=== PATIENT | female | born 1985 | race American Indian/Alaskan Native ===

== ENCOUNTER 2018-05-07 11:24 | Outpatient (CLI) | payer MEDICAID ==
[2018-05-07 11:51] VITALS: BP 113/58
[2018-05-07 12:13] LABS: Bacteria,Urine 2+ /HPF (Negative); Bilirubin,Urine NEG (Negative); Blood,Urine NEG (Negative); Color,Urine Yellow (Yellow); Mucus,Urine FEW /HPF; Protein,Urine <15 mg/dL mg/dL (Negative)
== END 2018-05-07 12:40 | disposition home or self-care (01) ==
LOC: TRG 11:24
PROVIDERS: ATTEND Obstetrics & Gynecology
DX: O47.02 False labor before 37 completed weeks of gestation, second trimester (principal); Z3A.23 23 weeks gestation of pregnancy; Z88.0 Allergy status to penicillin
CPT/HCPCS: 81001

== ENCOUNTER 2018-08-20 19:47 | Inpatient (IN) | payer MEDICAID ==
[2018-08-20] MEDS ORDERED: BRETHINE SUB-Q PRN (21:03)
[2018-08-20] MEDS ORDERED: ZOFRAN IV PRN ×2 (21:03→23:03)
[2018-08-20] MEDS ORDERED: SUBLIMAZE IV PRN (21:03)
[2018-08-20] MEDS ORDERED: XYLOCAINE 2% INFILTRATI ONE (21:03)
[2018-08-20] MEDS ORDERED: MINERAL OIL PO PRN (21:03)
[2018-08-20 21:23] LABS: Hematocrit 32.9 % (30.3-42.9); Hemoglobin 11.1 gm/dl (10.1-14.3); Mean Corpuscular HGB Conc 34 % (30-34); Mean Corpuscular Hemoglobin 30 pg (28-32); Mean Corpuscular Volume 89 fl (79-97); Platelet Count 250 K/mm3 (140-440); Red Blood Count 3.69 M/mm3 (3.65-5.03)
[2018-08-20] MEDS: LACTATED RINGERS 1,000 ML IV SCH ×2 (21:47→22:30)
[2018-08-20] MEDS ORDERED: PITOCin/NS 30 UNIT/500ML 30 UNITS/500 ML BAG IV SCH ×2 (22:00)
[2018-08-20] MEDS ORDERED: PITOCin/NS 20 UNIT/1000ML DRIP 20 UNITS/1,000 ML BAG IV SCH (22:00)
[2018-08-20] MEDS ORDERED: CLEOCIN 900 MG/50 mL 900 MG/50 ML BAG IV SCH (22:00)
--- NOTE | 2018-08-20 22:22 | History and Physical Report ---
History of Present Illness Date of examination: 08/20/18 Chief complaint: pain after fall, incidentally found to be SROM'd and laboring History of present illness: EDC Calculations LMP: 08/29/2018 Past History : 3 Term Births: 2 Premature Births: 0 Living Children: 2 Para: 2 Mult. Births: 0 Prev : 0 Prev. attempt? none Aborta: 0 Elect. Ab: 0 Spont. Ab: 0 Ectopics: 0 # 1 Delivery date: 07/22/2008 Weeks Gestation: 40w2d Delivery type: Forceps Anesthesia type: epidural Delivery location: [facility] Sex: female weight: 7.44 Name: Anette # 2 Delivery date: 2012 Weeks Gestation: term labor: yes Delivery type: Infant Sex: Female weight: 7#10 Past Medical History: Reviewed history from 12/03/2017 and no changes required: Shoulder injury (10/2016) Past Surgical History: Reviewed history from 01/04/2009 and no changes required: Negative Past Surgical History Past Medical History Abnormal PAP: negative Family Hx: No Family History of DVT/PE on OCP. Father - HTN Mother - DM Social Hx: Patient is single. non smoker Smoking History: Patient has never smoked. Infection History Hx of STD: none HIV Risk Eval: low risk Hepatitis B Risk Eval: low risk Varicella/Chicken Pox Status: Previous Disease Genetic History Congenital Heart Defect: Mom: no Dad: no Ifde Disease: Mom: no Dad: no Thalassemia Mom: no Dad: no Neural Tube Defect Mom: no Dad: no Down's Syndrome Mom: no Dad: no Calvin-Sachs Mom: no Dad: no Sickle Cell Disease/Trait Mom: no Dad: no Hemophilia Mom: no Dad: no Muscular Dystrophy Mom: no Dad: no Cystic Fibrosis Mom: no Dad: no Waves Chorea Mom: no Dad: no Mental Retardation Mom: no Dad: no Fragile X Mom: no Dad: no Other Genetic/Chromosomal Disorder Mom: no Dad: no Child w/other defect Mom: no Dad: no Enviromental Exposures Xray Exposure: no Medication, drug, or alcohol use since LMP: no Chemical/Other Exposure: no Exposure to Cat Liter: no Hx of Parvovirus (Fifth Disease): no Occupational Exposure to Children: none Active Medications (reviewed today): None Current Allergies (reviewed today): PCN (Critical) Past History Past Medical History: other (see HPI) Past Surgical History: other (see HPI) 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, 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 (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) - Obstetrical History Expected Date of Delivery: 08/29/18 Actual Gestation: 38 Week(s) 5 Day(s) : 3 Para: 2 Hx # Term Pregnancies: 2 Number of Pregnancies: 0 Spontaneous Abortions: 0 Induced : 0 Number of Living Children: 2 Medications and Allergies Allergies Allergy/AdvReac Type Severity Reaction Status Date / Time Penicillins Allergy Rash Verified 06/21/18 15:16 Home Medications Medication Instructions Recorded Confirmed Last Taken Type Vit-Fe Fumar-FA [ 1 tab PO QDAY 05/07/18 08/20/18 08/20/18 History Vitamin] Active Meds: Active Medications Ephedrine Sulfate (Ephedrine Sulfate) 10 mg IV Q2M PRN PRN Reason: Hypotension Fentanyl (Sublimaze) 100 mcg IV Q2H PRN PRN Reason: Labor Pain Clindamycin HCl (Cleocin 900 Mg/50 Ml) 900 mg in 50 mls @ 100 mls/hr IV Q8HR CHUNG; Protocol Last Admin: 08/20/18 21:47 Dose: 100 mls/hr Documented by: Lactated Ringer's (Lactated Ringers) 1,000 mls @ 125 mls/hr IV DIRECT CHUNG Last Admin: 08/20/18 21:47 Dose: 125 mls/hr Documented by: Oxytocin/Sodium Chloride (Pitocin/Ns 20 Unit/1000ml Drip) 20 units in 1,000 mls @ 125 mls/hr IV DIRECT CHUNG Oxytocin/Sodium Chloride (Pitocin/Ns 30 Unit/500ml) 30 units in 500 mls @ 1 mls/hr IV TITR CHUNG; Protocol Oxytocin/Sodium Chloride (Pitocin/Ns 30 Unit/500ml) 30 units in 500 mls @ 4 mls/hr IV TITR CHUNG; Protocol Mineral Oil (Mineral Oil) 30 ml PO QHS PRN PRN Reason: Constipation Ondansetron HCl (Zofran) 4 mg IV Q8H PRN PRN Reason: Nausea And Vomiting Terbutaline Sulfate (Brethine) 0.25 mg SUB-Q ONCE PRN PRN Reason: Hyperstimulation/Hypertonicity Review of Systems All systems: negative - Vital Signs Vital signs: Vital Signs Pulse BP 83 123/75 08/20/18 20:51 08/20/18 20:51 Temp Pulse Resp BP Pulse Ox 97.8 F 83 20 123/75 08/20/18 20:55 08/20/18 20:55 08/20/18 20:55 08/20/18 20:55 - Physical Exam Breasts: Positive: normal Cardiovascular: Regular rate Lungs: Positive: Clear to auscultation, Normal air movement Abdomen: Positive: normal appearance, soft Genitourinary (Female): Positive: normal external genitalia, normal perenium Vagina: Positive: normal moisture (SROM - clear fluid) Uterus: Positive: normal size Anus/Rectum: Positive: normal perianal skin Extremities: Positive: normal - Obstetrical FHR: category 1 Uterine Contraction Monitor Mode: External Cervical Dilatation: 6 Cervical Effacement Percentage: 85 station: -1 Uterine Contraction Frequency (min): 2.5-4 Uterine Contraction Duration: 60 Uterine Contraction Pattern: Regular Uterine Tone Measurement Phase: Contraction Uterine Contraction Intensity: Moderate Results Result Diagrams: 08/20/18 21:15 All other labs normal. Assessment and Plan 33y/o arrived to triage after falling. CAT 1 tracing noted, perineum noted to be wet by triage nurse. Patient reports some fluid coming out @ 1400 todat but she is not sure. Will set SROM time as 1400. GBS +, pcn allergy, cleocin start. admission orders placed in chart. EFW 6#10 12/7 by u/s at [facility]. pelvis feels adequate for size, although difficult to asses d/t BMI of 43. Anticipate . Dr. Orlando aware of admission. 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
[2018-08-20] MEDS ORDERED: NARCAN 2 MG/2 ML IV PRN (23:03)
[2018-08-20] MEDS ORDERED: BENADRYL IV PRN (23:03)
[2018-08-20] MEDS ORDERED: fentaNYL-BUPIV 2 MCG/ML-0.125% 200 MCG/100 ML BAG EPIDURAL SCH (23:45)
--- NOTE | 2018-08-20 23:47 | Anesthesia Day of Surgery ---
Anesthesia Day of Surgery - Day of Surgery Patient Examined: Yes Patient H&P Reviewed: Yes Patient is NPO: Yes Beta Blockers: No Cardiac Clearance: No Pulmonary Clearance: No
--- NOTE | 2018-08-20 23:48 | Anesthesia Consultation ---
Anesthesia Consult and Med Hx Date of service: 08/20/18 - Airway Anesthetic Teeth Evaluation: Good ROM Head & Neck: Adequate Mental/Hyoid Distance: Adequate Mallampati Class: Class III Intubation Access Assessment: Possibly Difficult - Pulmonary Exam CTA: Yes - Cardiac Exam Cardiac Exam: No Murmur - Pre-Operative Health Status ASA Pre-Surgery Classification: ASA2 Proposed Anesthetic Plan: Epidural - Pulmonary Hx Asthma: No COPD: No Hx Pneumonia: No - Cardiovascular System Hx Hypertension: No - Central Nervous System Hx Seizures: No Hx Psychiatric Problems: No - Endocrine Hx Renal Disease: No Hx End Stage Renal Disease: No Hx Hypothyroidism: No Hx Hyperthyroidism: No - Hematic Hx Anemia: No Hx Sickle Cell Disease: No - Other Systems Hx Alcohol Use: No Hx Obesity: Yes
[2018-08-21] MEDS ORDERED: XYLOCAINE 2% INFILTRATI ONE ×2 (00:18→00:41)
--- NOTE | 2018-08-21 01:04 | Procedure Note ---
OB Delivery Note - Delivery Date of Delivery: 08/21/18 ( female) Manager Application: NORBERTO TUBBS Estimated blood loss: other (350) - Vaginal Delivery presentation: vertex Delivery position: OA Intrapartum events: none Delivery induction: none Delivery monitor: external FHT, external uterine Route of delivery: Delivery placenta: spontaneous Delivery cord: 3 umbilical vessels Episiotomy: none Delivery laceration: 1st degree Delivery repair: vicryl Anesthesia: epidural Delivery comments: Female del over intact perineum, NORMAN. no shoulder dystocia. Infant placed skin to skin. 3 vessel cord clamped and cut. Placenta del intact and complete. 1st degree tanisha lac repaired in the usual fashion with local as epidural did not have good coverage. Fundus firm, lochia scant. EBL 350, apgars 8/9, wt 7#13oz. mother remains LDR stable. - A at 1 minute: 8 at 5 minutes: 9 Infant Gender: Female (7#13)
[2018-08-21] MEDS ORDERED: PITOCin/NS 20 UNIT/1000ML DRIP 20,000 MILLIUNITS/1,000 ML BAG IV ONE (03:01)
[2018-08-21] MEDS ORDERED: DULCOLAX PR PRN (03:05)
[2018-08-21] MEDS ORDERED: MILK OF MAGNESIA PO PRN (03:05)
[2018-08-21] MEDS ORDERED: TYLENOL PO PRN (03:05)
[2018-08-21] MEDS ORDERED: DERMOPLAST TP PRN (03:05)
[2018-08-21] MEDS ORDERED: LANSINOH TP PRN (03:05)
[2018-08-21] MEDS ORDERED: PITOCin/NS 20 UNIT/1000ML DRIP 20 UNITS/1,000 ML BAG IV SCH (03:05)
[2018-08-21] MEDS ORDERED: SODIUM CHLORIDE FLUSH SYRINGE 10 ML IV NR (03:05)
[2018-08-21] MEDS ORDERED: PHENERGAN PO PRN (03:05)
[2018-08-21] MEDS ORDERED: BENADRYL PO PRN (03:05)
[2018-08-21] MEDS ORDERED: TUCKS PAD TP PRN (03:05)
[2018-08-21] MEDS: MOTRIN PO SCH ×4 (07:01→23:45)
--- NOTE | 2018-08-21 08:52 | Progress Note ---
Assessment and Plan DOD, patient resting in bed with baby in arms, no complaints Subjective - Subjective Date of service: 08/21/18 Objective - Vital Signs Latest vital signs: Vital Signs Temp Pulse Resp BP BP Pulse Ox 08/21/18 07:47 97.9 F 18 107/67 08/21/18 01:58 103 H 97 08/21/18 01:56 86 117/81 08/21/18 01:53 88 96 08/21/18 01:48 90 96 08/21/18 01:43 92 H 97 08/21/18 01:38 93 H 98 08/21/18 01:35 103 H 92 08/21/18 01:33 92 H 97 08/21/18 01:28 94 H 97 08/21/18 01:23 95 H 98 08/21/18 01:18 103 H 98 08/21/18 01:12 92 H 99 08/21/18 01:10 93 H 125/60 08/21/18 01:07 93 H 100 08/21/18 01:02 101 H 100 08/21/18 00:53 96 H 85 08/21/18 00:51 96 H 100 08/21/18 00:46 95 H 99 08/21/18 00:41 101 H 98 08/21/18 00:36 99 H 97 08/21/18 00:30 121 H 98 08/21/18 00:25 119 H 99 08/21/18 00:20 104 H 99 08/21/18 00:15 115 H 98 08/21/18 00:10 97 H 89 08/21/18 00:02 42 L 89 08/20/18 23:41 85 98 08/20/18 23:38 134 H 110/81 08/20/18 23:36 87 97 08/20/18 23:35 94 H 108/55 08/20/18 23:34 109 H 115/58 08/20/18 23:32 99 H 117/59 08/20/18 23:31 123 H 98 08/20/18 23:29 122 H 106/56 08/20/18 23:27 104 H 110/59 08/20/18 23:26 133 H 97 08/20/18 23:25 91 H 104/57 08/20/18 23:23 123 H 101/61 08/20/18 23:21 91 H 106/58 97 12/28/18 23:20 97 H 109/66 08/20/18 23:17 125 H 112/56 08/20/18 23:16 112 H 96 08/20/18 23:15 92 H 107/56 08/20/18 23:13 96 H 110/63 08/20/18 23:11 114 H 117/62 98 08/20/18 23:09 95 H 113/60 08/20/18 23:07 104 H 124/78 08/20/18 23:06 103 H 97 08/20/18 23:05 117 H 132/73 08/20/18 23:03 108 H 119/62 08/20/18 23:01 94 H 119/63 97 08/20/18 22:59 114 H 126/67 08/20/18 22:57 96 H 130/70 08/20/18 22:56 90 99 08/20/18 22:51 91 H 97 08/20/18 22:48 92 H 136/79 08/20/18 22:46 89 97 08/20/18 22:41 96 H 98 08/20/18 22:36 89 98 08/20/18 22:31 96.8 F L 96 H 18 136/79 98 08/20/18 22:16 90 98 08/20/18 20:55 97.8 F 83 20 123/75 08/20/18 20:51 83 123/75 Intake and Output 08/20/18 08/21/18 08/21/18 22:59 06:59 14:59 Intake Total 89.583 Output Total 800 Balance 89.583 -800 Intake: IV 89.583 Lactated Ringers 1,000 ml 89.583 @ 125 mls/hr IV DIRECT [facility] Rx#:[id number] Output: Urine 800 Void 800 Other: Total, Output Amount 800 # Voids Void 1 Weight 128.367 kg Estimated Blood Loss 350
[2018-08-21 14:16] LABS: Hematocrit 30.8 % (30.3-42.9)
[2018-08-21] MEDS: COLACE PO SCH (22:37)
[2018-08-22] MEDS ORDERED: BOOSTRIX IM ONE (06:00)
[2018-08-22] MEDS: MOTRIN PO SCH ×4 (06:50→23:23)
--- NOTE | 2018-08-22 08:41 | Progress Note ---
Assessment and Plan - Patient Problems (1) (normal spontaneous vaginal delivery) Current Visit: Yes Status: Acute Plan to address problem: Normal PP care, patient desires d/c home tomorrow Subjective - Subjective Date of service: 08/22/18 Principal diagnosis: PPD#1 Patient reports: appetite normal, voiding normally, pain well controlled, ambulating normally, other (minimal bleeding) Objective - Vital Signs Latest vital signs: Vital Signs Temp Pulse Resp BP Pulse Ox 08/22/18 08:16 98.2 F 86 18 110/68 97 08/22/18 01:31 98.5 F 96 H 18 109/50 96 08/21/18 15:28 98.7 F 84 18 108/62 95 08/21/18 11:27 99.2 F 86 18 102/64 98 Intake and Output 08/21/18 08/22/18 08/22/18 22:59 06:59 14:59 Intake Total 600 Balance 600 Intake: Oral 240 Intake, Free Water 360 Other: Total, Intake Amount 240 # Voids Void 1 - Exam Breasts: Present: normal Lungs: Present: Normal air movement Abdomen: Present: normal appearance, soft, other (obese). Absent: distention Uterus: Present: other (unable to palpate d/t obesity) Extremities: Present: normal - Labs Labs: Abnormal lab results 08/21/18 Range/Units 13:55 Hgb 10.0 L (10.1-14.3) gm/dl
[2018-08-22] MEDS: PRENATAL VITAMIN PO SCH (11:44)
[2018-08-22] MEDS: COLACE PO SCH ×2 (11:44→23:23)
[2018-08-22] MEDS ORDERED: AFLURIA QUAD 2018-2019 SYRINGE IM ONE (12:00)
--- NOTE | 2018-08-23 05:23 | Discharge Summary ---
Providers - Providers Date of Admission: 08/21/18 00:51 Date of discharge: 08/23/18 (pt agrees with d/c) Attending physician: BLAZE FERREIRA Primary care physician: VICTORIA AG Hospitalization Reason for admission: active labor Delivery: Episiotomy: none Laceration: 1st degree Incision: normal Other procedures: none complications: none Discharge diagnosis: IUP at term delivered baby: female Hospital course: uncomplicated vaginal delivery Pt resting No c/o voiced VSS FF below umb Lochia small perineum slight swelling intact H&H stable No s/sx of anemia Doing well s/p vag delivery P: d/c today with instructions RTO 4 weeks PP care. Condition at discharge: Good Disposition: DC-01 TO HOME OR SELFCARE - Discharge Diagnoses (1) (normal spontaneous vaginal delivery) Status: Acute Comment: RTO 4 weeks PP care Plan - Provider Discharge Summary Activity: routine, no sex for 6 weeks, no heavy lifting 4 weeks, no strenuous exercise Diet: routine Instructions: routine Additional instructions: [] Smoking cessation referral if applicable(refer to patient education folder for contact #) [] Refer to [facility]'s [facility] Booklet Call your doctor immediately for: * Fever > 100.5 * Heavy vaginal bleeding ( >1 pad per hour) * Severe persistent headache * Shortness of breath * Reddened, hot, painful area to leg or breast * Drainage or odor from incision. * Keep incision clean and dry at all times and follow doctor's instructions regarding bathing/showering - Follow up plan Follow up: VICTORIA AG MD [Primary Care Provider] - 09/21/18 (Congratulations! Please call [phone] to schedule your visit in 4 weeks. Motrin/ibuprofen for cramping/pain. Call with concerns.) Forms: [facility] Discharge Summary
[2018-08-23] MEDS: MOTRIN PO SCH (06:00)
[2018-08-23 09:52] VITALS: BP 112/75
[2018-08-23] MEDS: COLACE PO SCH (10:10)
[2018-08-23] MEDS: PRENATAL VITAMIN PO SCH (10:10)
== END 2018-08-23 11:00 | disposition home or self-care (01) | DRG 775 ==
LOC: TRG 19:47 → LD 21:17 → TRG 08-21 00:50 → LD 08-21 00:51 → OB 08-21 02:34
PROVIDERS: ADMIT Obstetrics & Gynecology; ATTEND Obstetrics & Gynecology
PROC: 10E0XZZ Delivery of Products of Conception, External Approach (ICD-10-PCS; principal; 2018-08-21)
PROC: 3E0R3BZ Introduction of Anesthetic Agent into Spinal Canal, Percutaneous Approach (ICD-10-PCS; 2018-08-21)
PROC: 00HU33Z Insertion of Infusion Device into Spinal Canal, Percutaneous Approach (ICD-10-PCS; 2018-08-21)
PROC: 0HQ9XZZ Repair Perineum Skin, External Approach (ICD-10-PCS; 2018-08-21)
PROC: 3E0234Z Introduction of Serum, Toxoid and Vaccine into Muscle, Percutaneous Approach (ICD-10-PCS; 2018-08-22)
DX: O99.824 Streptococcus B carrier state complicating childbirth (principal); Z3A.38 38 weeks gestation of pregnancy; Z37.0 Single live birth; O70.0 First degree perineal laceration during delivery; O99.214 Obesity complicating childbirth; E66.9 Obesity, unspecified; Z23 Encounter for immunization; Z82.49 Family history of ischemic heart disease and other diseases of the circulatory system; Z83.3 Family history of diabetes mellitus; Z88.0 Allergy status to penicillin
CPT/HCPCS: 36415; 85014; 85018; 85027; 86592; 86850; 86900; 86901; 90471; 90686; 90715; G0378; A6250; G0008; J2590; J7120

== ENCOUNTER 2018-11-10 07:15 | Day surgery (SDC) | payer MEDICAID ==
[~2018-11-10 07:15] MED LIST: CLEOCIN 900 MG/50 mL 900 MG/50 ML BAG IV ONE; LACTATED RINGERS 1,000 ML IV SCH; NACL 0.9% 1000 ML 1,000 ML IV SCH; NEURONTIN PO SCH; VANCOMYCIN 1,750 MG in NACL 0.9% 500 ML 500 ML IV NR; VANCOMYCIN 1,750 MG in NACL 0.9% 500 ML 500 ML IV ONE; VANCOMYCIN/NS 1 GM/250 ML 1 GM/250 ML BAG IV NR
[2018-11-10] MEDS ORDERED: SUBLIMAZE ONE (08:20)
[2018-11-10] MEDS ORDERED: DIPRIVAN 10 MG/ML IV ONE (08:20)
--- NOTE | 2018-11-10 08:20 | Anesthesia Day of Surgery ---
Anesthesia Day of Surgery - Day of Surgery Patient Examined: Yes Patient H&P Reviewed: Yes Patient is NPO: Yes
--- NOTE | 2018-11-10 08:20 | Anesthesia Consultation ---
Anesthesia Consult and Med Hx Date of service: 11/10/18 - Airway Anesthetic Teeth Evaluation: Poor (denies loose teeth) ROM Head & Neck: Adequate Mental/Hyoid Distance: Adequate Mallampati Class: Class II Intubation Access Assessment: Possibly Difficult - Pulmonary Exam CTA: Yes - Cardiac Exam Cardiac Exam: RRR - Pre-Operative Health Status ASA Pre-Surgery Classification: ASA3 Proposed Anesthetic Plan: General Nerve Block: TAP - Pulmonary Hx Smoking: No Hx Asthma: No Hx Respiratory Symptoms: No - Cardiovascular System Hx Hypertension: No Hx Heart Attack/AMI: No Hx Percutaneous Transluminal Coronary Angioplasty (PTCA): No Hx Cardia Arrhythmia: No - Central Nervous System Hx Neuromuscular Disorder: Yes (scoliosis) Hx Seizures: No CVA: No Hx Psychiatric Problems: No - Gastrointestinal Hx Gastroesophageal Reflux Disease: No - Endocrine Hx Renal Disease: No Hx End Stage Renal Disease: No Hx Liver Disease: No Hx Insulin Dependent Diabetes: No Hx Non-Insulin Dependent Diabetes: No Hx Thyroid Disease: No Hx Hypothyroidism: No Hx Hyperthyroidism: No - Other Systems Hx Obesity: Yes (BMI 40) - Additional Comments Anesthesia Medical History Comments: No hx anesthetic complications. Surgeon requests preop TAP block for postop analgesia.
[2018-11-10] MEDS ORDERED: MARCAINE 0.25% INFILTRATI ONE (08:42)
[2018-11-10] MEDS ORDERED: DECADRON ONE (08:42)
[2018-11-10] MEDS ORDERED: VERSED IV NR (09:00)
[2018-11-10] MEDS ORDERED: SUBLIMAZE IV ONE (09:00)
[2018-11-10] MEDS ORDERED: DILAUDID IV PRN (09:00)
--- NOTE | 2018-11-10 09:00 | Short Stay Summary ---
Short Stay Documentation Date of service: 11/10/18 - History H&P: obtained from office - Allergies and Medications Current Medications: Allergies Penicillins Allergy (Verified 10/04/18 09:57) Rash Home Medications Medication Instructions Recorded Confirmed Last Taken Type No Known Home Medications [No 10/04/18 10/04/18 Unknown History Reported Home Medications] Active Medications Fentanyl (Sublimaze) 100 mcg IV ONCE ONE Stop: 11/10/18 09:01 Gabapentin (Neurontin) 600 mg PO PREOP CHUNG Hydromorphone HCl (Dilaudid) 0.5 mg IV Q10MIN PRN PRN Reason: Pain , Severe (7-10) Stop: 11/10/18 18:00 Lactated Ringer's (Lactated Ringers) 1,000 mls @ 75 mls/hr IV DIRECT CHUNG Midazolam HCl (Versed) 2 mg IV PREOP NR Stop: 11/10/18 23:59 - Brief post op/procedure progress note Date of procedure: 11/10/18 (Dictation: [id number]) Pre-op diagnosis: symptomatic umbilical hernia Post-op diagnosis: other (symptomatic umbilical and ventral hernia) Procedure: lap umbo and ventral hernia repair with mesh IVF 1L Anesthesia: GETA Findings: umbo hernia and 2 superior ventral hernias. Largest was 1cm. "Northern Irish cheese" type appearance Surgeon: JULISA UNDERWOOD Estimated blood loss: minimal (<20cc) Pathology: list (hernia sac and fat content) Specimen disposition: to lab Condition: stable - Hospital course Hospital course: Uneventful - Disposition Condition at discharge: Stable Disposition: DC-01 TO HOME OR SELFCARE Short Stay Discharge Plan Activity: other (no driving until cleared by surgeon) Diet: regular Wound: open to air, keep clean and dry, other (apply ice pack to wounds for 10-15min/4-5 times a day. May shower tomorrow. Pat dry wounds. ) Special Instructions: no heavy lifting (or strenuous activity for 6 weeks) Follow up with: JONATHAN TOLBERT MD [Primary Care Provider] - 7 Days JULISA UNDERWOOD MD [Staff Physician] - 14 Days Forms: Outpatient Surgery DC Inst. Prescriptions: HYDROcodone/ACETAMINOPHEN [[place] 5-325 Tablet] 1 each PO Q6H #40 tablet
[2018-11-10] MEDS ORDERED: XYLOCAINE 1%/ EPI 1:100,000 INFILTRATI ONE ×2 (09:10→09:43)
[2018-11-10] MEDS ORDERED: MARCAINE 0.5% INFILTRATI ONE ×2 (09:10→09:43)
[2018-11-10] MEDS ORDERED: WATER FOR IRRIG STERILE IR ONE (09:43)
--- NOTE | 2018-11-10 12:58 | Post Anesthesia Evaluation ---
- Post Anesthesia Evaluation Patient Participated: Yes Airway Patent: Yes Stable Respiratory Function: Yes Nausea/Vomiting: No Temp > 96.8F: Yes Pain Manageable: Yes Adequeate Hydration: Yes Anesthesia Complications: No
[2018-11-10 15:35] VITALS: BP 101/72
--- NOTE | 2018-11-10 16:18 | Operative Report ---
PREOPERATIVE DIAGNOSIS: Symptomatic umbilical hernia. POSTOPERATIVE DIAGNOSES: 1. Symptomatic umbilical hernia. 2. Symptomatic ventral hernias x 2. PROCEDURE: Laparoscopic repair of umbilical and laparoscopic hernias with mesh. ATTENDING SURGEON: Trini Washington MD ANESTHESIA: General. ESTIMATED BLOOD LOSS: Minimal. FLUIDS: 1 liter. FINDINGS: The patient had multiple small fascial defects, one was centered at the umbilicus, 2 were superior in the midline. Wound was in the midline and the next one was to the left of midline. The midline ventral hernia had herniated fat contents in the hernia sac. SPECIMEN: Hernia sac and herniated fat. IMPLANT: Large Ventralex sokaogon Mesh. DRAINS: None. COMPLICATIONS: Stable, transferred to Recovery Room. INDICATIONS: This is a 33-year-old female who has had a symptomatic umbilical hernia for many years. On exam, she had some fullness of the right of midline as well and she was reporting the pain in that region. Therefore, we felt that a laparoscopic evaluation will give as the best overall sense of the umbilical hernia and if there are any associated problems. Procedure, risks and benefits were explained to the patient. Risks included but were not limited to infection, bleeding, pain, injury to surrounding structures, possible recurrence, possible need for further procedures in the future. The patient understood and consented. OPERATIVE NOTE: The patient was brought to the operating room and placed on the table in supine position. After adequate general anesthesia was established, the patient was prepped and draped in usual sterile fashion. Antibiotics had been administered prior to the start of the case. SCDs were placed. Time-out was called. I began by placing a Veress needle in the left upper quadrant. I was able to insufflate the abdomen on the first attempt. A 5 mm port was placed in the left lower quadrant using the Optiview technique. We placed another 5 mm port in between the two on the left side as far lateral as we could. This was done under direct vision. We saw where the Veress needle had been placed. There was no injury to the underlying structures. It does appear that the tip may have gone underneath the omentum as there was air underneath parts of the omentum in various locations. We replaced the Veress needle with a 5 mm port. Please note prior to start of the case, the patient did have a SUMA block. We began by taking down the herniated fat. I was able to reduce all the contents in the hernia sac. This was mainly at the ventral hernia that was in the midline superior to the umbilicus. We reduced all of it and then it from the surrounding tissue with the Harmonic scalpel. This was laid on top of the omentum until we were ready to remove it. There was some additional herniated fat that we were able to reduce. We did divide the falciform ligament with Harmonic scalpel. At this point, we could clearly see the free fascial defects to use one as a center we would compromise coverage of the tube. Therefore, I ultimately decided to place the mesh in between the umbilical and the midline ventral as we would also get the one on the left side. We used a large mesh. I placed a 12 mm port exactly in between the two hernias and then through the port, we passed the mesh. Port was removed. Please note that after we placed the port, we did remove the specimens and passed off the table sterile fashion. We secured the mesh to the anterior abdominal wall with AbsorbaTack. We had very good coverage of all 3. On the left side, the AbsorbaTack did not hold as well. However, we were going to secure the straps of the mesh to the fascia when we closed. Therefore, I felt this would be the standard way we would normally do an open repair and we would not be securing the edges intraabdominally. Therefore, I felt we were going to have a secure mesh and the underlying abdominal contents would be pushing up against the mesh to help adhere to the anterior abdominal wall. Therefore, I did not worry about this too much. We had good coverage of all three sides, especially the umbilicus and the superior midline ventral hernia. With an 0 Vicryl stitch, I secured the straps to the adjacent fascial edges and closed that defect and excised the excess straps. We desufflated the abdomen, removed all the ports under direct vision. Additional local was injected into the port sites and skin sites were closed with 4-0 Monocryl subcuticular stitch. The skin was cleaned and dried. Dermabond was placed. The patient tolerated procedure well. There were no complications. All counts were correct at the end of the case. There was no family for me to talk to at the end of the case. Mother was not answering her phone. JOB# [id number] STEVEN/MAYCO
== END 2018-11-10 12:10 | disposition home or self-care (01) ==
LOC: OR 07:15
PROVIDERS: ATTEND Surgery
DX: K42.9 Umbilical hernia without obstruction or gangrene (principal); K43.9 Ventral hernia without obstruction or gangrene; E66.9 Obesity, unspecified; Z68.41 Body mass index [BMI] 40.0-44.9, adult; Z87.442 Personal history of urinary calculi; Z98.890 Other specified postprocedural states; Z88.0 Allergy status to penicillin; Z79.899 Other long term (current) drug therapy; Z83.3 Family history of diabetes mellitus; Z80.1 Family history of malignant neoplasm of trachea, bronchus and lung; Z80.8 Family history of malignant neoplasm of other organs or systems; Z82.49 Family history of ischemic heart disease and other diseases of the circulatory system
CPT/HCPCS: 49652; 64450; 81025; 88302; C1781; J1100; J2250; J2704; J3010; J7120; J3370; J7040

== ENCOUNTER 2019-09-30 12:08 | Outpatient (CLI) | payer MEDICAID ==
[2019-09-30 12:50] VITALS: BP 110/61
[2019-09-30] MEDS ORDERED: LACTATED RINGERS 1,000 ML IV SCH (13:00)
[2019-09-30] MEDS ORDERED: ACETAMINOPHEN 500 MG TAB PO ONE (13:21)
[2019-09-30] MEDS ORDERED: PROPOFOL 200 MG/20 ML VIAL IV ONE (13:44)
[2019-09-30] MEDS ORDERED: SUCCINYLCHOLINE CHLORIDE 200 MG/10 ML INJ MDV ONE (13:44)
[2019-09-30] MEDS ORDERED: KETAMINE/STERILE WATER 50 MG/ML SYRINGE ONE (13:58)
--- NOTE | 2019-09-30 13:58 | Ultrasound Report ---
ULTRASOUND OBSTETRIC LIMITED INDICATION / CLINICAL INFORMATION: Fall, injury. TECHNIQUE: Transabdominal ultrasound imaging. COMPARISON: None available. FINDINGS: HEART RATE (beats per minute): 148 AMNIOTIC FLUID INDEX (cm) = not measured. Qualitative amniotic fluid appears within normal limits. PRESENTATION: Cephalic. ADDITIONAL FINDINGS: The placenta is posterior fundal, grade 1. No evidence for abruption. IMPRESSION: No significant abnormality. Signer Name: Stephane Adler Jr, MD Signed: 09/30/2019 1:53 PM Workstation Name: [id number]
[2019-09-30 14:20] LABS: Bilirubin,Urine NEG (Negative); Blood,Urine NEG (Negative); Color,Urine Yellow (Yellow); Mucus,Urine FEW /HPF; Protein,Urine <15 mg/dL mg/dL (Negative); Urobilinogen,Urine < 2.0 mg/dL (<2.0)
== END 2019-09-30 14:47 | disposition home or self-care (01) ==
LOC: TRG 12:08
PROVIDERS: ATTEND Obstetrics & Gynecology
DX: O26.892 Other specified pregnancy related conditions, second trimester (principal); M54.89 Other dorsalgia; W19.XXXA Unspecified fall, initial encounter; Y93.89 Activity, other specified; Y92.89 Other specified places as the place of occurrence of the external cause; Y99.8 Other external cause status; Z3A.21 21 weeks gestation of pregnancy
CPT/HCPCS: 76815; 81001; 85460; 86850; 86900; 86901; J0330; J2704

== ENCOUNTER 2019-12-12 09:59 | Outpatient (CLI) | payer MEDICAID ==
[2019-12-12 13:11] VITALS: BP 109/59
--- NOTE | 2019-12-12 13:52 | Ultrasound Report ---
Limited OB Ultrasound Biophysical profile HISTORY: decreased movement. TECHNIQUE: Grayscale and color imaging performed. COMPARISON: Limited OB ultrasound from 09/30/2019 FINDINGS: There is a single viable intrauterine gestation with transverse presentation. Heart rate is 148 bpm. ELAYNE is 14 cm. Cervical length is 5.9 cm. On biophysical profile, the fetus received a score of 2 out of 2 for breathing movement, movement, po sture/tone, and ELAYNE. Heart rate during this portion of the exam was 152 bpm. IMPRESSION: 1. Single viable intrauterine gestation as above. 2. Normal BPP. Signer Name: Jacob Jefferson MD Signed: 12/12/2019 1:47 PM Workstation Name: [id number]
[2019-12-12] MEDS ORDERED: LACTATED RINGERS 1,000 ML IV ONE (13:58)
[2019-12-12] MEDS ORDERED: TERBUTALINE 1 MG/1 ML INJ SUB-Q ONE (15:14)
== END 2019-12-12 15:45 | disposition home or self-care (01) ==
LOC: TRG 09:59 → APU 10:01 → TRG 15:45
PROVIDERS: ATTEND Obstetrics & Gynecology
DX: O42.913 Preterm premature rupture of membranes, unspecified as to length of time between rupture and onset of labor, third trimester (principal); O47.03 False labor before 37 completed weeks of gestation, third trimester; Z3A.32 32 weeks gestation of pregnancy
CPT/HCPCS: 59025; 76815; 76819; 96360; 96372; J3105; J7120

== ENCOUNTER 2019-12-31 13:59 | Outpatient (CLI) | payer MEDICAID ==
[2020-01-03 12:00] VITALS: BP 112/77
== END 2019-12-31 15:27 | disposition home or self-care (01) ==
LOC: TRG 13:59 → APU 14:36 → TRG 15:27
PROVIDERS: ATTEND Obstetrics & Gynecology
DX: O47.03 False labor before 37 completed weeks of gestation, third trimester (principal); Z3A.35 35 weeks gestation of pregnancy
CPT/HCPCS: 59025

== ENCOUNTER 2020-01-14 23:51 | Outpatient (CLI) | payer MEDICAID ==
[2020-01-15 00:20] VITALS: BP 115/69
[2020-01-15] MEDS ORDERED: LACTATED RINGERS 1,000 ML IV ONE (00:57)
[2020-01-15] MEDS ORDERED: FAMOTIDINE 20 MG/2 ML INJ IV SCH (01:30)
--- NOTE | 2020-01-15 02:03 | Ultrasound Report ---
ULTRASOUND BIOPHYSICAL PROFILE INDICATION / CLINICAL INFORMATION: Evaluate well being and ELAYNE. COMPARISON: Obstetrical ultrasound, 12/12/2019 FINDINGS: BREATHING MOVEMENT = 2 GROSS BODY MOVEMENT = 2 TONE = 2 QUALITATIVE AMNIOTIC FLUID VOLUME = 2 TOTAL BIOPHYSICAL SCORE = 03/31 AMNIOTIC FLUID INDEX (cm) = 22.8 PRESENTATION: Cephalic. HEART RATE (beats per minute): 151 IMPRESSION: 1. biophysical profile = 03/31 Signer Name: Tequila Powell MD Signed: 01/15/2020 1:58 AM Workstation Name: [email or web address]
== END 2020-01-15 02:10 | disposition home or self-care (01) ==
LOC: TRG 23:51 → APU 01-15 00:03 → TRG 01-15 02:10
PROVIDERS: ATTEND Obstetrics & Gynecology
DX: O62.9 Abnormality of forces of labor, unspecified (principal); Z3A.37 37 weeks gestation of pregnancy
CPT/HCPCS: 59025; 76815; 76819; 96361; 96365; J7120; 96360; 96374

== ENCOUNTER 2020-01-30 23:28 | Outpatient (CLI) | payer MEDICAID ==
[2020-01-30 23:51] VITALS: BP 115/60
[2020-01-31] MEDS ORDERED: LACTATED RINGERS 1,000 ML IV ONE (00:54)
[2020-01-31] MEDS ORDERED: LACTATED RINGERS 1,000 ML ONE (00:58)
== END 2020-01-31 02:04 | disposition home or self-care (01) ==
LOC: TRG 23:28 → APU 23:36 → TRG 01-31 02:04
PROVIDERS: ATTEND Obstetrics & Gynecology
DX: O62.9 Abnormality of forces of labor, unspecified (principal); O26.893 Other specified pregnancy related conditions, third trimester; R19.7 Diarrhea, unspecified; Z3A.39 39 weeks gestation of pregnancy
CPT/HCPCS: 59025; 96360; J7120

== ENCOUNTER 2020-02-03 22:35 | Outpatient (CLI) | payer MEDICAID ==
[2020-02-03 23:05] VITALS: BP 122/70
--- NOTE | 2020-02-03 23:37 | Event Note ---
Date: 02/03/20 (Lower abdominal pain, pelvic pressure) Pt states that she came to triage because she was having lower abdominal pain and pelvic pressure. States that it started yesterday morning. Cervical exam 250/-3. Pt states that she has been 2/50/-3 for several weeks now. Irregular ctxs noted on the monitor at this time. Category 1 tracing. Will allow patient to walk for an hour then recheck. If no cervical change, then d/c home with labor precautions.
--- NOTE | 2020-02-04 02:22 | Event Note ---
Date: 02/04/20 (Unchanged cervical exam.) Pt with unchanged cervical exam. Category 1 monitor tracing. Patient given labor instructions and when to come back to triage with labor concerns. She was discharged home in stable condition and undelivered.
== END 2020-02-04 01:50 | disposition home or self-care (01) ==
LOC: TRG 22:35 → APU 22:37 → TRG 02-04 01:50
PROVIDERS: ATTEND Obstetrics & Gynecology
DX: O26.893 Other specified pregnancy related conditions, third trimester (principal); R10.2 Pelvic and perineal pain; R10.9 Unspecified abdominal pain; Z3A.39 39 weeks gestation of pregnancy
CPT/HCPCS: 59025

== ENCOUNTER 2021-01-21 10:17 | Outpatient (CLI) | payer MEDICAID ==
[2021-01-21 11:16] VITALS: BP 99/52
== END 2021-01-21 12:08 | disposition home or self-care (01) ==
LOC: TRG 10:17 → APU 10:20 → TRG 12:08
PROVIDERS: ATTEND Obstetrics & Gynecology
DX: O36.8120 Decreased fetal movements, second trimester, not applicable or unspecified (principal); Z3A.26 26 weeks gestation of pregnancy
CPT/HCPCS: 59025

== ENCOUNTER 2021-03-19 14:38 | Outpatient (CLI) | payer MEDICAID ==
[2021-03-19] MEDS ORDERED: LACTATED RINGERS 1,000 ML IV ONE (15:07)
[2021-03-19 15:14] VITALS: BP 115/69
[2021-03-19 15:53] LABS: Bacteria,Urine 1+ /HPF (Negative); Bilirubin,Urine NEG (Negative); Blood,Urine NEG (Negative); Color,Urine Yellow (Yellow); Mucus,Urine FEW /HPF; Protein,Urine <15 mg/dL mg/dL (Negative); Urobilinogen,Urine < 2.0 mg/dL (<2.0); WBC,Urine < 1.0 /HPF (0.0-6.0)
--- NOTE | 2021-03-19 17:22 | Ultrasound Report ---
LIMITED OBSTETRICAL ULTRASOUND HISTORY: Evaluate weight, ELAYNE and position. FINDINGS: A single viable intrauterine in the cephalic position has heart tones of 14 5 bpm. Amniotic fluid index is normal at 13.6 cm. Estimated age by ultrasound is 32 weeks 5 days. Estimated weight is 1933 g. IMPRESSION: 1. Viable intrauterine in the cephalic position with amniotic fluid index of 13.6 cm. 2. weight 1933 g (3rd percentile). Signer Name: Shaq Kong MD Signed: 03/19/2021 5:18 PM Workstation Name: [id number]
[2021-03-19 18:49] LABS: Mean Corpuscular HGB Conc 33 % (30-34); Mean Corpuscular Volume 92 fl (79-97); Platelet Count 220 K/mm3 (140-440); Red Blood Count 3.58 M/mm3 (3.65-5.03); Red Cell Distribution Width 13.6 % (13.2-15.2)
--- NOTE | 2021-03-19 19:50 | Ultrasound Report ---
BIOPHYSICAL PROFILE HISTORY: Evaluate well-being. FINDINGS: Biophysical profile was performed and is normal at 88. heart tones are 155 bpm. IMPRESSION: Normal biophysical profile of 8. Signer Name: Shaq Kong MD Signed: 03/19/2021 7:46 PM Workstation Name: [id number]
== END 2021-03-19 19:32 | disposition home or self-care (01) ==
LOC: TRG 14:38 → APU 14:41 → TRG 19:32
PROVIDERS: ATTEND Obstetrics & Gynecology
DX: O42.913 Preterm premature rupture of membranes, unspecified as to length of time between rupture and onset of labor, third trimester (principal); Z3A.34 34 weeks gestation of pregnancy
CPT/HCPCS: 36415; 59025; 76815; 76816; 76819; 81001; 84112; 85027; 96360

== ENCOUNTER 2021-10-25 06:59 | Day surgery (SDC) | payer MEDICAID ==
[2021-10-21 12:43] LABS: Hematocrit 33.1 % (30.3-42.9); Hemoglobin 11.3 gm/dl (10.1-14.3); Mean Corpuscular HGB Conc 34 % (30-34); Mean Corpuscular Volume 85 fl (79-97); Platelet Count 256 K/mm3 (140-440); Red Blood Count 3.91 M/mm3 (3.65-5.03); Red Cell Distribution Width 14.9 % (13.2-15.2)
--- NOTE | 2021-10-22 16:20 | History and Physical Report ---
History of Present Illness Date of examination: 10/21/21 History of present illness: Patient has been reassessed/reevaluated. H&P has been reviewed. No interval changes. 36 year old Patient desires sterilization. Discussed with various methods of contraceptives including abstinence, barrier and hormonal. Discussed oral, implantable, dermal, injectable,intravaginal and intrauterine methods. Patient declined temporary contraceptives. Discuss the permanency of sterilization. High risk of regret and 0.5 to 1% risk of failure. Questions answered Patient understands and desires to proceed. ] Vital Signs: Patient Profile: 36 Years Old Female LMP: 09/04/2021 Height: 67 inches Weight: 287 pounds BMI: 44.95 Temp: 97.2 degrees F BP sittin / 70 (left arm) Menstrual History: LMP (date): 09/04/2021 LMP - Character: light On BCP's at conception: no Current Method of Contraception: Depo-Provera Date of Last Pap Smear: 08/31/2020 Past History : 5 Term Births: 5 Premature Births: 0 Living Children: 5 Para: 5 Mult. Births: 0 Prev : 0 Prev. attempt? none Aborta: 0 Elect. Ab: 0 Spont. Ab: 0 Ectopics: 0 # 1 Delivery date: 07/22/2008 Weeks Gestation: 40w2d Delivery type: Forceps Anesthesia type: epidural Delivery location: [facility] Sex: female weight: 7.44 Name: Anette # 2 Delivery date: 2013 Weeks Gestation: term labor: yes Delivery type: Sex: Female weight: 7#10 # 3 Delivery date: 08/21/2018 Weeks Gestation: 38+6 Delivery type: Vaginal Anesthesia type: epidural Delivery location: [facility] Infant Sex: female weight: 7.81 Name: Ana Comments: none # 4 Delivery date: 02/09/2020 Weeks Gestation: 40 Delivery type: Vaginal Anesthesia type: epidural Delivery location: [facility] Sex: female weight: 7.13 Name: Kash Comments: GBS + # 5 Delivery date: 04/19/2021 Weeks Gestation: 39+2 Delivery type: Vaginal Hours of labor: 5 Anesthesia type: epidural Delivery location: [facility] Infant Sex: female weight: 6.94 Name: Zaida Comments: none Current Allergies (reviewed today): PCN (Critical) Past Medical History: Shoulder injury (10/2016) Umbilical hernia Past Surgical History: Ankle surgery Bilteral (2001) Left Shoulder (2017) Umbilical Hernia (2018) Family History Summary: Other Family Member - Has No Family History of Uterine Cancer - Entered On: 01/16/2018 Other Family Member - Has No Family History of Small Bowel Cancer - Entered On: 01/16/2018 Other Family Member - Has No Family History of Stomach Cancer - Entered On: 01/16/2018 Other Family Member - Has No Family History of Pancreatic Cancer - Entered On: 01/16/2018 Other Family Member - Has No Family History of Ovarvian Cancer - Entered On: 01/16/2018 Other Family Member - Has No Family History of Kidney/Urinary Tract Cancer - Entered On: 01/16/2018 Other Family Member - Has No Family History of Spontaneous DVT-PE - Entered On: 01/16/2018 Other Family Member - Has No Family History of Colon Cancer - Entered On: 01/16/2018 Other Family Member - Has No Family History of Brain Cancer - Entered On: 01/16/2018 Other Family Member - Has No Family History of Breast Cancer - Entered On: 01/16/2018 Other Family Member - Has No Family History of Biliary Tract Cancer - Entered On: 01/16/2018 General Comments - FH: No Family History of DVT/PE on OCP. Father - HTN Mother - DM Social History: Patient is single. non smoker Smoking History: Patient has never smoked. 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 of genital herpes: no Partner hx. of genital herpes: no Hx of STD: none Review of Systems General Complains of fatigue. Denies fever, chills, sweats, anorexia, weakness, malaise, weight loss and sleep disorder. Denies vaginal discharge, incontinence, dysuria, hematuria, urinary frequency, amenorrhea, menorrhagia, abnormal vaginal bleeding, pelvic pain, genital sores, decreased libido, painful periods, painful sex, urinary urgency, hot flashes, vaginal dryness, vaginal itching and vaginal odor. CV Denies chest pains, palpitations, syncope, dyspnea on exertion, orthopnea, PND and peripheral edema. Resp Denies cough, dyspnea at rest, excessive sputum, hemoptysis, wheezing and pleurisy. GI Denies nausea, vomiting, diarrhea, constipation, change in bowel habits, abdominal pain, melena, hematochezia, jaundice, gas/bloating, indigestion/heartburn, dysphagia and odynophagia. Breast Denies left breast lump, right breast lump, nipple discharge, bloody discharge from nipple, breast pain, abnormal mammogram and breast enlargement. Psych Denies depression, anxiety, irritability and mood swings. Past History Past Medical History: other (See HPI) Past Surgical History: Other (See HPI) Social history: full code, other (See HPI) Family history: other (See HPI) Medications and Allergies Allergies Allergy/AdvReac Type Severity Reaction Status Date / Time Penicillins Allergy Severe Rash Verified 04/19/21 22:41 Home Medications Medication Instructions Recorded Confirmed Last Taken Type No Known Home Medications [No 04/19/21 10/21/21 Unknown History Reported Home Medications] Review of Systems Constitutional: other (See HPI) Exam - Physical Exam Narrative exam: HEENT: normocephalic, no lesions or deformities Skin no abnormal lesions or rashes Chest: respiratory effort normal, clear to auscultation CV: regular, normal S1-S2, no murmur, no rub, no gallop Abdomen: Obese, normal bowel sounds, soft, nontender, no HSM Neuro: no gross anomalities Extremities: no clubbing, cyanosis, or edema 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 Cervix: normal appearance, no lesions. Uterus: unable to palpate due to obesity Adnexae: unable to palpate due to obesity Rectovaginal: exam defered - Constitutional Vitals: Temp Pulse Resp BP Pulse Ox 97.8 F 84 16 121/66 100 10/21/21 12:30 10/21/21 12:30 10/21/21 12:30 10/21/21 12:30 10/21/21 12:30 Results - Labs CBC & Chem 7: 10/21/21 12:35 Assessment and Plan - Patient Problems (1) Encounter for sterilization Current Visit: No Status: Acute Plan to address problem: Patient desires sterilization.Discuss the permanency of sterilization. High risk of regret and 0.5 to 1% risk of failure. Discussed options of tubal blockage and salpingectomy and it's possible benefit of preventing ovarian cancer and increased risks of bleeding during the procedure. Discuss the risks of the surgery including infection, bleeding possibly heavy enough to require a blood transfusion, possilble damage to bowel, bladder or ureter. Patient understands and desires to proceed with salpingectomy. (2) BMI 40.0-44.9, adult Current Visit: No Status: Chronic Plan to address problem: Patient has been advised that obesity does increase risks of surgical and risks of post operative complications.
[~2021-10-25 06:59] MED LIST changes: +ACETAMINOPHEN 500 MG TAB PO SCH; +CELECOXIB 200 MG CAP PO NR; -CLEOCIN 900 MG/50 mL 900 MG/50 ML BAG IV ONE; +GABAPENTIN 300 MG CAP PO NR; +MIDAZOLAM 2 MG/2 ML INJ IV NR; -NACL 0.9% 1000 ML 1,000 ML IV SCH; -NEURONTIN PO SCH; +SCOPOLAMINE TRANSDERMAL PATCH 72 HR TD NR; -VANCOMYCIN 1,750 MG in NACL 0.9% 500 ML 500 ML IV NR; -VANCOMYCIN 1,750 MG in NACL 0.9% 500 ML 500 ML IV ONE; -VANCOMYCIN/NS 1 GM/250 ML 1 GM/250 ML BAG IV NR
--- NOTE | 2021-10-25 07:31 | Anesthesia Consultation ---
Anesthesia Consult and Med Hx Date of service: 10/25/21 - Airway Anesthetic Teeth Evaluation: Poor (evidence of decay; denies loose teeth), Chipped (upper incisors) ROM Head & Neck: Adequate Mental/Hyoid Distance: Adequate Mallampati Class: Class III Intubation Access Assessment: Possibly Difficult - Pre-Operative Health Status ASA Pre-Surgery Classification: ASA3 Proposed Anesthetic Plan: General - Pulmonary Hx Smoking: No Hx Respiratory Symptoms: No (COVID 07/2021 w/ mild cough now resolved) - Cardiovascular System Hx Hypertension: No Hx Heart Attack/AMI: No - Central Nervous System CVA: No Hx Back Pain: Yes - Endocrine Hx Renal Disease: No Hx Liver Disease: No Hx Insulin Dependent Diabetes: No Hx Non-Insulin Dependent Diabetes: No Hx Thyroid Disease: No - Other Systems Hx Obesity: Yes (BMI 42) - Additional Comments Anesthesia Medical History Comments: No hx anesthetic complications.
--- NOTE | 2021-10-25 07:31 | Anesthesia Day of Surgery ---
Anesthesia Day of Surgery - Day of Surgery Patient Examined: Yes Patient H&P Reviewed: Yes Patient is NPO: Yes
[2021-10-25] MEDS ORDERED: ACETAMINOPHEN 325 MG/10.15 ML ORAL LIQD UNIT DOSE ONE (07:34)
[2021-10-25] MEDS ORDERED: GABAPENTIN 500 MG/10 ML ORAL LIQD ONE (07:34)
[2021-10-25] MEDS ORDERED: GABAPENTIN 500 MG/10 ML ORAL LIQD PO SCH (09:00)
[2021-10-25] MEDS ORDERED: ACETAMINOPHEN 325 MG/10.15 ML ORAL LIQD UNIT DOSE PO NR (09:00)
[2021-10-25] MEDS ORDERED: ONDANSETRON 4 MG/2 ML INJ IV PRN (09:00)
[2021-10-25] MEDS ORDERED: HYDROmorphone 1 MG/1 ML INJ IV PRN (09:00)
[2021-10-25] MEDS ORDERED: oxyCODONE /ACETAMINOPHEN 5-325MG TAB PO PRN (09:00)
[2021-10-25] MEDS ORDERED: fentaNYL 100 MCG/2 ML INJ ONE ×2 (09:42→10:41)
[2021-10-25] MEDS ORDERED: MIDAZOLAM 2 MG/2 ML INJ ONE (09:42)
[2021-10-25] MEDS ORDERED: propofoL 200 MG/20 ML VIAL IV ONE (09:43)
[2021-10-25] MEDS ORDERED: BUPIVACAINE/PF (0.5%) 5 MG/1 ML 30 ML VIAL INFILTRATI ONE ×2 (09:48→10:44)
[2021-10-25] MEDS ORDERED: ONDANSETRON 4 MG/2 ML INJ ONE (09:50)
[2021-10-25] MEDS ORDERED: dexAMETHasone 20 MG/5 ML VIAL ONE (09:50)
[2021-10-25] MEDS ORDERED: KETOROLAC 30 MG/1 ML INJ ONE (09:50)
[2021-10-25] MEDS ORDERED: SUCCINYLCHOLINE CHLORIDE 200 MG/10 ML INJ MDV ONE (09:52)
[2021-10-25] MEDS ORDERED: ROCURONIUM 50 MG/5 ML INJ IV ONE (09:52)
[2021-10-25] MEDS ORDERED: PHENYLEPHRINE/NS 1,000 MCG/10 ML SYRINGE (OR USE) IV ONE (10:23)
[2021-10-25] MEDS ORDERED: SODIUM CHLORIDE 0.9% IRR 1,500 ML BOTTLE IR ONE (10:44)
[2021-10-25] MEDS ORDERED: NEOSTIGMINE 10MG/10 ML INJ MDV ONE (10:55)
[2021-10-25] MEDS ORDERED: GLYCOPYRROLATE 0.4 MG/2 ML INJ ONE (10:55)
--- NOTE | 2021-10-25 11:31 | Operative Report ---
Operative Report Operative Report: Date of procedure: [] Pre-operative diagnosis: Patient desires permanent sterilization Post-operative diagnosis: Same Procedure name(s): Laparoscopic bilateral salpingectomy Surgeon: Booker Ramos MD Tax Senior Associate: [] Anesthesia: General endotracheal EBL: Minimal Complications: None Findings: Patient with uterus approximately 8-10 weeks in size with normal fallopian tubes bilaterally Specimen(s): Bilateral fallopian tubes Patient was brought in the operating room. General anesthesia was induced without difficulty. She was placed in dorsal lithotomy position. Prepped and draped in usual sterile manner. Her urinary bladder with was emptied with a red rubber catheter. Speculum placed in her vagina and Sargis uterine manipulator was placed for uterine manipulation without difficulty. Attention was then switched to the patient's abdomen. An infra-umbilical incision was made with a scalpel. This incision was spread with a hemostat. A 5 mm trocar was placed in this incision while lifting high the abdominal wall. Intra-abdominal presence was verified directly with the laparoscope. The patient was then insufflated to approximately 3 L of CO2 gas. The patient's findings as noted above. An accessory puncture was made suprapubically. The 8 mm trocar was placed through this incision under direct visualization with no evidence of internal organ damage. Each of the fallopian tube were identified by its fimbriated end. Starting with the right fallopian tube approximately 1 to 2 cm from the cornea LigaSure device was used to cross sectional cut the tube. From this point the ligature device was used to cauterize and cut the mesosalpinx until the fimbriated end was reached detaching the tube. The fallopian tube was then removed through the accessory port attention was then switched to the contralateral tube. Same procedure was performed detaching that tube and removed it through the accessory port. The remaining stump was inspected and found to be hemostatic. At this time all instruments were removed. The patient was de-insufflated. The skin incisions were closed subcuticularly with 4-0 Vicryl. Marcaine was injected into the surgical incisions, for postoperative pain relief. The patient tolerated procedure well. She was awakened in the o perating room and accompanied to the recovery room in good condition.
--- NOTE | 2021-10-25 11:33 | Discharge Summary ---
Short Stay Discharge Plan Activity: advance as tolerated Diet: regular Wound: open to air Additional Instructions: Patient was admitted underwent the above him procedure without any complications. Patient will be discharged with follow-up in office in 1-2 weeks for postop check. Patient to call office for any fever, chills, nausea, vomiting or pain not controlled by pain medication. Follow up with: PRIMARY CARE, [Primary Care Provider] - 7 Days Prescriptions: Ibuprofen [Motrin] 800 mg PO TID PRN #30 tablet PRN Reason: Pain oxyCODONE /ACETAMINOPHEN [Percocet 5/325 mg] 1 tab PO Q6HR PRN #20 tablet PRN Reason: Pain
[2021-10-25] MEDS ORDERED: HYDROcodone/ACETAMINOPHEN 5-325 MG TAB PO PRN (12:00)
[2021-10-25] MEDS ORDERED: ACETAMINOPHEN 325 MG TAB PO PRN (12:00)
[2021-10-25 14:48] VITALS: BP 124/82
== END 2021-10-25 13:10 | disposition home or self-care (01) ==
LOC: OR 06:59
PROVIDERS: ATTEND Obstetrics & Gynecology
DX: Z30.2 Encounter for sterilization (principal); Z20.828 Contact with and (suspected) exposure to other viral communicable diseases; E66.9 Obesity, unspecified; Z88.0 Allergy status to penicillin; Z79.899 Other long term (current) drug therapy; Z87.442 Personal history of urinary calculi; Z98.890 Other specified postprocedural states; Z68.41 Body mass index [BMI] 40.0-44.9, adult
CPT/HCPCS: 36415; 58670; 84703; 85027; 88302; J0330; J1100; J1815; J1885; J2250; J2370; J2405; J2704; J2710; J3010; J3490; J7120; U0003